=== PATIENT | female | born 1985 | race Caucasian/White ===

== ENCOUNTER → 2024-12-18 09:28 | Outpatient (REF) | payer OTHER, SELFPAY | LOC: HWRAD 09:28 | PROVIDERS: ATTENDING PHYSICIAN Nurse Practitioner Family; FAMILY PHYSICIAN Family Medicine | DX: E83.110 Hereditary hemochromatosis (principal); D53.9 Nutritional anemia, unspecified; D68.9 Coagulation defect, unspecified | CPT/HCPCS: 76700 ==